=== PATIENT | female | born 1990 | race Caucasian/White ===

== ENCOUNTER 2025-10-13 10:28 | Outpatient (CLI) | payer OTHER, SELFPAY ==
[2025-10-13 14:03] LABS: Abs Immature Grans 0.02 10^3/uL (0.0-0.06); HCT 36.6 % (36.0-46.0); HGB 11.8 g/dL (11.2-15.7); Immature Grans % 0.3 %; MCH 28.8 pg (27.0-33.0); MCHC 32.2 % (32.0-36.0); MCV 89 fL (80-95); MPV 10.8 fL (8.0-11.0); Platelet Count 338 10^3/uL (130-400); RBC 4.10 10^6/uL (3.93-5.22); RDW 15.9 % (11.7-14.6); RDW-SD 52.7 fL; WBC 6.65 10^3/uL (4.4-10.8)
[2025-10-13 16:17] LABS: TSH (W/Ref FT4) 1.16 uIU/mL (0.55-4.78); Vitamin D 25 Total 13 ng/mL (30-100)
[2025-10-13 16:25] LABS: ALT 12 U/L (10-49); AST 18 U/L (<34); Albumin 4.3 g/dL (3.4-5.0); Alkaline Phosphatase 73 U/L (46-116); Anion Gap 8.3 mmol/L (3-11); BUN 9 mg/dL (9-23); Bilirubin, Total 0.20 mg/dL (0.2-1.2); CO2 24.7 mmol/L (20.0-31.0); Calcium 8.5 mg/dL (8.3-10.6); Chloride 109 mmol/L (98-107); Cholesterol 167 mg/dL (<200); Glucose 81 mg/dL (74-106); HDL Cholesterol 90 mg/dL (>40); Potassium 4.0 mmol/L (3.5-5.1); Sodium 142 mmol/L (136-145); Total Protein 7.5 g/dL (5.7-8.2)
[2025-10-13 17:26] LABS: Hemoglobin A1C 5.2 % (<5.7)
[2025-10-13 23:53] LABS: HIV-1/2 Ag & Ab Screen Negative (Negative)
[2025-10-13 23:57] LABS: HBs Antibody, Quant >1000.0 mIU/mL (See Note); Hepatitis B Surface Antigen Negative (Negative)
[2025-10-13 23:58] LABS: Hepatitis C Ab w Rflx HCV PCR Negative (Negative)
== END 2025-10-13 10:29 | disposition home or self-care (01) ==
LOC: LOS 10:28
PROVIDERS: PCP Nurse Practitioner Family; Visit Provider Nurse Practitioner Family
DX: Z00.00 Encounter for general adult medical examination without abnormal findings (principal); Z11.59 Encounter for screening for other viral diseases; Z11.4 Encounter for screening for human immunodeficiency virus [HIV]
CPT/HCPCS: 36415; 80053; 80061; 82306; 86704; 86706; 86803; 87340; 87389; 83036; 84443; 85025

== ENCOUNTER → 2025-11-19 08:56 | Outpatient (CLI) | payer OTHER, SELFPAY ==
[2025-11-19] MEDS: Gadoterate meglumine 20 ML SYRINGE IJ (09:24)
[2025-11-19] MEDS: Normal Saline Flush 10 ML SYR IVP (09:25)
--- NOTE | 2025-11-19 09:50 | DI.MRI_ITS ---
Exam(s) MR BRAIN WO/W EXAM: MR BRAIN WO/W CLINICAL HISTORY: MULTIPLE SCLEROSIS,G35.D. TECHNIQUE: Multiplanar multisequence MRI of the brain was performed. CONTRAST MATERIAL: IV Contrast: 17 ML of Dotarem contrast administered. COMPARISON: MR MRI BRAIN MS WWO from 03/15/2023 FINDINGS: VENTRICLES AND EXTRA AXIAL SPACES: Normal in size and morphology for the patient's age. HEMORRHAGE: None. CEREBRAL PARENCHYMA: No focus of restricted diffusion to suggest acute infarct. No space-occupying lesion identified. There are 2 foci located just superior to the right lateral ventricle, perpendicular. There is a small focus high signal anterior to the right lateral ventricle. There are 2 other tiny foci adjacent to the left lateral ventricle. The findings appear stable from the previous exam. BRAINSTEM/CEREBELLUM: Normal. CALVARIUM: Normal. ENHANCEMENT: No suspicious enhancement identified. VISUALIZED PARANASAL SINUSES/MASTOIDS: Clear. Orbits: Unremarkable. Pituitary: Not enlarged. Vasculature: Normal flow voids. IMPRESSION: Stable periventricular white matter lesions consistent with patient's diagnosis of multiple sclerosis. No new abnormalities are identified. DATA REPOSITORY:
== END ==
LOC: DI 08:56
PROVIDERS: PCP Nurse Practitioner Family; Visit Provider Nurse Practitioner Family
DX: G35.D Multiple sclerosis, unspecified (principal)
CPT/HCPCS: 70553